=== PATIENT | female | born 1990 | race Two or more races ===

== ENCOUNTER 2016-08-13 12:08 | Emergency (ER) | payer MEDICAID, OTHER ==
[~2016-08-13] VITALS: Ht 154.9 cm; Wt 90.7 kg
[2016-08-13 12:54] VITALS: BP 122/72
[2016-08-13] MEDS ORDERED: LIDOCAINE 1% HCL (LOCAL ANESTH.) INJ 20ML MDV IJ ONE (13:15)
[2016-08-13] MEDS ORDERED: TETANUS-DIPTH-ACEL PERTUSSIS 0.5ML SYRG IM ONE (13:15)
[2016-08-13] MEDS ORDERED: NEOMYCIN-BACITRACIN-POLYM UNITDOSE PKG TOP OINT TOP ONE (13:15)
== END 2016-08-13 13:53 | disposition home or self-care (01) ==
LOC: ER 12:13
DX: S61.213A Laceration without foreign body of left middle finger without damage to nail, initial encounter (principal); Z23 Encounter for immunization; W26.0XXA Contact with knife, initial encounter; Y93.89 Activity, other specified; Y99.8 Other external cause status; Y92.090 Kitchen in other non-institutional residence as the place of occurrence of the external cause
CPT/HCPCS: 12001; 90471; 90715; 99283; J2001

== ENCOUNTER 2022-06-30 09:49 | Emergency (ER) | payer OTHER ==
[~2022-06-30] VITALS: Ht 154.9 cm; Wt 86.0 kg
[2022-06-30 10:51] VITALS: BP 141/90
[2022-06-30] MEDS ORDERED: IBUP800T27 PO (10:57)
[2022-06-30] MEDS ORDERED: IBUPROFEN 800 MG TAB PO ONE (11:00)
== END 2022-06-30 11:06 | disposition home or self-care (01) ==
LOC: ER 09:49 → EEVIPCON 09:49 → ER 11:04
DX: S62.653A Nondisplaced fracture of middle phalanx of left middle finger, initial encounter for closed fracture (principal); W01.0XXA Fall on same level from slipping, tripping and stumbling without subsequent striking against object, initial encounter; Y93.89 Activity, other specified; Y92.89 Other specified places as the place of occurrence of the external cause; Y99.8 Other external cause status
CPT/HCPCS: 29130; 73130

== ENCOUNTER 2023-10-31 10:23 | Emergency (ER) | payer MEDICAID, OTHER ==
[~2023-10-31] VITALS: Ht 152.4 cm; Wt 95.8 kg
[~2023-10-31 10:23] MED LIST: IBUP-1456 PO
[2023-10-31 10:59] VITALS: BP 125/85; PULSE 113; RESP 14; TEMP 98.5; O2SAT 98
[2023-10-31] MEDS ORDERED: LIDO2SOL26 MT (11:18)
[2023-10-31] MEDS ORDERED: CEPH500C PO (11:18)
[2023-10-31] MEDS: cefTRIAXone SOD 1,000 MG VL IM ONE (11:26)
== END 2023-10-31 11:35 | disposition home or self-care (01) ==
LOC: ER 10:23
DX: J03.90 Acute tonsillitis, unspecified (principal)
CPT/HCPCS: 96372; 99283; J0696